=== PATIENT | female | born 1955 | race Caucasian/White ===

== ENCOUNTER → 2016-06-13 | Outpatient (CLI) | payer OTHER ==
--- NOTE | 2016-06-13 15:50 | MAM ---
EXAM DESCRIPTION: MAMMO BREAST SCREENING BILATERAL CAD, images were reviewed with CAD technology, R2 computer-aided detection. CLINICAL HISTORY: [facility]. COMPARISON: No prior study currently available. FINDINGS: Routine views are obtained. Heterogeneously dense breast tissue. No dominant mass, architectural distortion or clustered microcalcification.. IMPRESSION: Benign exam. BIRAD CATEGORY: 2 BENIGN RECOMMENDATIONS: FOLLOW-UP: Routine screening mammogram in one year. According to the [employer], yearly mammograms are recommended starting at age 40 and continuing as long as a woman is in good health. Any breast change noted on a breast self-exam should be reported promptly to the patient's healthcare provider. Breast MRI is recommended for women with an approximately 20-25% or greater lifetime risk of breast cancer, including women with a strong family history of breast or ovarian cancer and women who have been treated for Hodgkin's disease. Electronically signed by: Lucy Pringle 06/13/2016 15:48
== END ==
LOC: MAMMO 10:44
PROVIDERS: ATTEND Family Medicine
DX: Z12.31 Encounter for screening mammogram for malignant neoplasm of breast (principal)
CPT/HCPCS: 77052; G0202

== ENCOUNTER → 2017-03-20 | Outpatient (CLI) | payer OTHER | END | disposition home or self-care (01) | LOC: LAB.O 11:21 | PROVIDERS: ATTEND Internal Medicine Nephrology | DX: N18.4 Chronic kidney disease, stage 4 (severe) (principal) ==

== ENCOUNTER → 2017-04-11 | Outpatient (CLI) | payer OTHER ==
--- NOTE | 2017-04-12 10:25 | MRI ---
EXAM DESCRIPTION: Lumbar Spine w/o Contrast CLINICAL HISTORY: LT SIDE PAIN COMPARISON: November 08, 2011 TECHNIQUE: Multiplanar, multisequence MRI of the lumbar spine was performed without contrast. FINDINGS: GENERAL Summary of the lumbar vertebral bodies was performed to correspond to the prior exam. The L5-S1 disc space is seen on transaxial T2 image 3 of series 501. There is a rudimentary disc space at S1-2. Vertebral body heights are maintained without compression deformity. There is trace retrolisthesis of L4 on L5 and L5 on S1 is stable from previous with straightening of the normal lumbar lordosis. There is increased T2 and decreased T1 signal in the posterior aspect of the right pedicle to articular pillar of L4 not seen on previous exam. Conus medullaris is unremarkable. Visualized intra-abdominal and retroperitoneal structures are unremarkable. L1-2 No significant findings. L2-3 No significant findings. L3-4 Trace anterolisthesis of L3 on L4 is now seen. There is linear annular tear centrally measuring 10 mm transverse. Disc desiccation is seen. 2 mm broad-based annular disc bulge is seen. Mild bilateral facet hypertrophic and degenerative changes are seen. There is minimal spinal canal stenosis and foraminal encroachment again seen. L4-5 Disc desiccation and mild loss of disc space height is seen. Linear annular tear in the right neural foramen without significant herniated disc is again seen. There is 2 to 3 mm broad-based annular disc bulge flattening the ventral aspect of the thecal sac mildly encroaching on the inferior aspect of the neural foramen bilaterally. No significant spinal canal stenosis or foraminal encroachment is seen. There is a new focal disc protrusion/extrusion in the left lateral recess measuring 4 mm AP by 10 mm transverse by 12 mm craniocaudal extending posterior to the L5 vertebral body and at least contacting to mildly posteriorly displacing the descending left L5 nerve root in the lateral recess. Mild bilateral facet hypertrophic and degenerative changes are seen. L5-S1 Disc desiccation and moderate to severe disc space narrowing is seen. Mild vacuum disc. Irregularity of the endplate margins is seen with Modic type II degenerative endplate signal changes. Mild bilateral facet hypertrophic and degenerative changes are seen. Mild to moderate bilateral foraminal encroachment is again seen. IMPRESSION: New focal disc probable extrusion versus free fragment from the L4-5 disc space into the left lateral recess posterior to the L5 vertebral body encroaches/impinges on the descending left L5 nerve root in the lateral recess. Mild to moderate disc degenerative changes from L3 through S1 are again seen with mild multilevel facet arthropathy Electronically signed by: Homero Moses MD 04/12/2017 10:23 AM [facility]
== END | disposition home or self-care (01) ==
LOC: MRI 07:53
PROVIDERS: ATTEND Family Medicine
DX: M47.896 Other spondylosis, lumbar region (principal)

== ENCOUNTER → 2017-04-28 | Outpatient (CLI) | payer OTHER ==
--- NOTE | 2017-04-30 08:53 | US ---
EXAM DESCRIPTION: Renal CLINICAL HISTORY: 61 years, Female, CHRONIC KIDNEY DISEASE COMPARISON: FINDINGS: Right kidney 9.9 cm. Left kidney 8.9 cm. No hydronephrosis. Renal cortex within normal limits. No renal mass lesion seen. No discrete stones Bladder not evaluated the study. IMPRESSION: Kidneys within normal sonographic limits Electronically signed by: Jesse Melo MD 04/30/2017 8:52 AM [facility]
== END | disposition home or self-care (01) ==
LOC: US 08:45
PROVIDERS: ATTEND Internal Medicine Nephrology
DX: N18.4 Chronic kidney disease, stage 4 (severe) (principal)

== ENCOUNTER → 2017-06-19 | Outpatient (CLI) | payer OTHER ==
--- NOTE | 2017-06-21 09:38 | MAM ---
EXAM DESCRIPTION: 3D Screening BILATERAL : Digital Mammography. CLINICAL HISTORY: 61 years Female SCREENING . No complaints. No family history of breast cancer. Postmenopausal. No HRT. COMPARISON: 2-D digital screening bilateral studies 06/13/2016 and 03/26/2015.. Report from prior examination also reviewed. TECHNIQUE: Bilateral CC and MLO projection full-field images, 3-D tomosynthesis digital mammographic technique. Also bilateral synthesized CC/ MLO full-field images. CAD not utilized. FINDINGS: The breast parenchymal density pattern is: Heterogeneously dense breast tissue, which may obscure small masses. No skin thickening or nipple retraction bilateral solitary microcalcifications. No focal, stellate mass or density, focal asymmetry , and no suspicious microcalcifications bilaterally. Stable mammograms compared to prior studies, taking into account differences in mammographic technique IMPRESSION: 1. BI-RADS CATEGORY: 2 - BENIGN FINDINGS. FOLLOW UP: Routine digital bilateral screening, one year interval from May 2017. Written communication explaining the IMPRESSION and follow-up, will be mailed to the patient and referring health care provider. According to the [employer], yearly mammograms are recommended starting at age 40 and continuing as long as a woman is in good health. Any breast change noted on a breast self-exam should be reported promptly to the patient's healthcare provider. Breast MRI is recommended for women with an approximately 20-25% or greater lifetime risk of breast cancer, including women with a strong family history of breast or ovarian cancer and women who have been treated for Hodgkin's disease. A negative mammographic report should not delay tissue diagnosis in patients with significant clinical history or physical findings. Extremely dense breast tissue limits the sensitivity of digital mammography. Electronically signed by: Momo Booth MD 06/21/2017 9:37 AM [facility]
== END ==
LOC: MAMMO 10:30
PROVIDERS: ATTEND Family Medicine
DX: Z12.31 Encounter for screening mammogram for malignant neoplasm of breast (principal)

== ENCOUNTER → 2018-01-03 | Outpatient (CLI) | payer OTHER ==
--- NOTE | 2018-01-03 11:02 | CT ---
EXAM DESCRIPTION: Abdomen w/Contrast CLINICAL HISTORY: ABD PAIN epigastric pain, nausea and vomiting x5 days COMPARISON: February 25, 2014 TECHNIQUE: CT of the abdomen only was performed with IV contrast. This exam was performed according to our departmental dose-optimization program, which includes automated exposure control, adjustment of the mA and/or kV according to patient size and/or use of iterative reconstruction technique. FINDINGS: No lung base abnormality. No pneumoperitoneum, adenopathy or ascites. No abdominal aortic aneurysm or dissection. No hiatal hernia. No definite gastric wall thickening. The gallbladder is surgically absent. No calcified intraductal gallstone. The liver, spleen, pancreas, adrenals and kidneys are unremarkable for noncontrast technique. No dilated small bowel loops or mesenteric inflammation are included on this exam. The distal small bowel was not visualized. Included portions of the colon are unremarkable with colonic diverticulosis is suspected in the sigmoid colon. No evidence of diverticulitis. Degenerative changes in the lumbar spine at several levels including degenerative disc disease at L5-S1. IMPRESSION: Status post cholecystectomy, but no acute intra-abdominal abnormality to explain patient's symptoms. Electronically signed by: Brendan Funes MD 01/03/2018 11:01 AM CDT
== END ==
LOC: CT 09:51
PROVIDERS: ATTEND Nurse Practitioner
DX: R10.9 Unspecified abdominal pain (principal); Z98.890 Other specified postprocedural states; Z90.49 Acquired absence of other specified parts of digestive tract

== ENCOUNTER → 2018-10-29 | Outpatient (CLI) | payer OTHER ==
--- NOTE | 2018-10-29 16:30 | MRI ---
EXAM DESCRIPTION: Cervical Spine: MRI. CLINICAL HISTORY: 62 years Female RADICULOPATHY COMPARISON: CT scan cervical spine 09/13/2011. TECHNIQUE: Multiplanar, high-field MRI, multiple sequences, non-contrast Cervical spine. FINDINGS: ACDF fusion construct C3-C5. No abnormal signal around the hardware or within the vertebral bodies. No soft tissue mass or fluid collection in the paravertebral soft tissues are within the spinal canal. Normal signal in the cord. At C3-4, bilateral foramina are patent with no significant canal narrowing. Interbody fusion device stable with disc space mostly ossified. C4-C5: Interbody fusion devices stable mostly ossification of the disc space. No significant canal or foraminal narrowing. No cord compression. C5-C6: Disc desiccation and posterior disc osteophyte bulge more to the right of midline. Right uncinate spur. Borderline neural foraminal stenosis. This has progressed since the prior CT scan. Mild narrowing of the left neural foramen. Facets are negative. C6-C7: Disc desiccation and anterior endplate reactive changes with anterior and disc bulge and endplate ridging. Posterior disc osteophyte bulge abutting the cord. Mild canal narrowing. Bilateral uncinate spurs. Bilateral neural foraminal narrowing but no stenosis. C7-T1: Moderate disc space loss and disc desiccation with endplate reactive changes anterior bulging and spurs as well as Schmorl's nodes superior and inferior endplates. Minimal posterior disc bulge. Bilateral uncinate spurs larger on the right than left. Right neural foraminal stenosis. This has progressed since the prior CT scan. No significant facet arthrosis. Normal signal in the C2-C3 disc and T1-T2 disc with no bulging. Disc spaces preserved. Canal and neural foramina are patent. Facet joints unremarkable. Spinal alignment mild kyphosis from C3 through C6. No cord compression or cord edema. Atlantoaxial joint minimal arthrosis. Base of the cerebellar tonsils is slightly above the foramen magnum. Paravertebral soft tissues 5 mm nodule in the right thyroid lobe.. Vertebral bodies are not compressed at any level. Otherwise normal marrow signal in the remaining vertebral bodies and the posterior elements. IMPRESSION: 1. Fusion construct with ACDF at C3-C5. No canal or foraminal stenosis at these levels. No complications in the hardware or bones or soft tissues. 2. Right uncinate spur and right paracentral C5-C6 disc osteophyte bulge with borderline right neural foraminal stenosis. This has progressed since the prior CT scan. Correlate for right C6 radiculopathy. 3. Right neural foraminal stenosis at C7-T1 which has progressed since the prior study. Correlate for right C8 radiculopathy. Electronically signed by: Momo Booth MD 10/29/2018 4:28 PM CDT
== END ==
LOC: MRI 10:52
PROVIDERS: ATTEND Physician Assistant
DX: M46.02 Spinal enthesopathy, cervical region (principal); M48.02 Spinal stenosis, cervical region; M51.16 Intervertebral disc disorders with radiculopathy, lumbar region; Z98.1 Arthrodesis status

== ENCOUNTER → 2018-11-22 | Outpatient (CLI) | payer OTHER | LOC: ECHO 10:09 | PROVIDERS: ATTEND General Practice | DX: I49.9 Cardiac arrhythmia, unspecified (principal); I34.1 Nonrheumatic mitral (valve) prolapse ==

== ENCOUNTER → 2018-11-27 | Outpatient (CLI) | payer OTHER | LOC: RESP 09:49 | PROVIDERS: ATTEND General Practice | DX: I49.9 Cardiac arrhythmia, unspecified (principal) ==

== ENCOUNTER → 2019-03-19 | Outpatient (CLI) | payer OTHER ==
--- NOTE | 2019-03-20 09:17 | MRI ---
EXAM DESCRIPTION: Lumbar Spine w/o Contrast : Magnetic Resonance Imaging. CLINICAL HISTORY: LUMBAR RADICULITIS COMPARISON: MRI scan lumbar spine without contrast 28 November 2017. TECHNIQUE: Multiplanar, multiple standard sequences, non contrast MRI, lumbar spine. FINDINGS: L5-S1: The disc is well visualized on axial T2 series 501, image 3. Severe disc space loss at this level stable since the prior study. 2 mm grade 1 retrolisthesis. Posterior elements unremarkable with no canal stenosis. Mild left foraminal narrowing and mild to moderate right foraminal narrowing. Rudimentary disc space at S1-S2. L4-L5: Disc desiccation and minimal disc space loss. 2 mm grade 1 anterolisthesis. Posterior broad-based 4 mm disc bulge. Hyperintense T2 annular fissure in the mid disc margin at the base of the right foramen. No nerve impingement. Posterior elements unremarkable Mild canal narrowing. Mild bilateral foraminal narrowing. L3-L4: Disc desiccation and disc space decreased. Grade 1 anterolisthesis 3 mm has increased. Posterior broad-based disc bulge with right paracentral protrusion 7 mm has increased. 5 mm inferior extrusion with effacement of the right subarticular recess and mass effect on the right L4 nerve. Bilateral hypertrophic facet arthrosis and flavum ligament thickening with right paracentral AP canal diameter 8 mm. Increased since the prior study. Right intraforaminal superior extrusion of the disc almost 1 cm, also abutting the descending right L3 nerve above the foramen. This is new since the prior study. Moderate narrowing of the right foramen. L2-L3: Normal signal in the disc with disc space maintained, and no bulging. Minimal hypertrophic changes in the facets and posterior ligaments with canal patent. Bilateral foramina are patent. Stable since the prior study. L1-L2: Normal signal in the disc with disc space preserved and no posterior bulging. Posterior elements unremarkable. Canal and foramina are patent. T12-L1: Normal signal in the disc with disc space preserved and no posterior bulging. Posterior elements unremarkable. Canal and foramina are patent. No significant scoliosis. Paravertebral soft tissues show muscle atrophy. Ectasia of the aorta.. Distal cord normal signal and caliber. Normal marrow signal in the remaining vertebral bodies and the posterior elements. Vertebral bodies are not compressed at any level. IMPRESSION: 1. Right paracentral protrusion of the L3-4 disc is increased since the prior study with superior extrusion in the foramen abutting the descending right L3 nerve and inferior extrusion effacing the right subarticular recess and compromising the right L4 nerve. Right paracentral mild to moderate canal stenosis. Moderate narrowing right foramen. 2. Marked narrowing and spondylosis L5-S1 disc space with moderate right foraminal narrowing. Stable since the prior study. Electronically signed by: Momo Booth MD 03/20/2019 9:16 AM CDT
== END ==
LOC: MRI 09:53
PROVIDERS: ATTEND General Practice
DX: M51.16 Intervertebral disc disorders with radiculopathy, lumbar region (principal); M47.27 Other spondylosis with radiculopathy, lumbosacral region; M48.062 Spinal stenosis, lumbar region with neurogenic claudication